=== PATIENT | male | born 1975 | race Caucasian/White ===

== ENCOUNTER → 2019-06-11 08:35 | Outpatient (CLI) | payer OTHER, SELFPAY ==
--- NOTE | 2019-06-11 08:39 | DI.RAD.S_ITS ---
PROCEDURE: XR CHEST 2V INDICATIONS: worsening cough TECHNIQUE: 2 views of the chest were acquired. COMPARISON: None. FINDINGS: Surgical changes and devices: None. Lungs and pleura: Lungs are clear. No pleural effusions or pneumothorax. Mediastinum: Mediastinal contours are normal. Heart size is normal. Bones and chest wall: No suspicious bony abnormalities. Soft tissues appear unremarkable. IMPRESSION: No acute cardiopulmonary process is evident. Dictated by: Carlos Bradshaw M.D. on 06/11/2019 at 8:14 Approved by: Carlos Bradshaw M.D. on 06/11/2019 at 8:14
== END ==
PROVIDERS: PCP Hospitalist; Visit Provider Physician Assistant
DX: R05 Cough (principal)
CPT/HCPCS: 71046

== ENCOUNTER 2019-09-20 20:18 | Emergency (ER) | payer OTHER, SELFPAY ==
[2019-09-20 20:33] VITALS: BP 129/91; PULSE 73; RESP 15; TEMP 37; O2SAT 97; BMI 41.6
--- NOTE | 2019-09-20 20:58 | PC.NURSE ---
Patient having left sided facial pain and swelling. Left side of face appears to be mildly reddened, no obvious swelling noted on exam. Patient states it hurts to touch the face and it feels like sinus pressure. He has had a history of sinus infections in the past. He states he has had sinus scraping procedure as well. Has been treated with antibiotics several times over the past few months for UTI, and upper respiratory infections. Currently taking doxycycline and was also prescribed a ipatropium nasal spray.
--- NOTE | 2019-09-20 20:59 | ED_ITS ---
HPI - Ear Problem General Chief complaint: Ear Stated complaint: lt sided facial swelling Time Seen by Provider: 09/20/19 20:56 Source: patient Mode of arrival: Ambulatory Limitations: no limitations History of Present Illness HPI Narrative: This is a 44-year-old male comes in with complaint of left-sided facial swelling. Patient states that he had swelling and redness noted on last week. He had a small spot he thought he was a pimple which popped he has ate it was red and swollen and that has decreased after being started on doxycycline on Thursday. Patient states he continues to feel like the left side of his face swollen and that the lymph nodes or sort of enlarged on just in front of his ear and his neck. He states they do not really seem like they are getting bigger. He states are comfortable. He has not had any fevers. He denies chills. He denies any muffled voice or changes in voice. Patient states he has had multiple sinus infections in the past and had multiple rounds of antibiotics and seen ENT and had sinus scrapping. Patient has had headaches intermittently. Patient states he has been using Mucinex daily after he had been sick several weeks ago. He is not having chest pain or coughing anything up from his chest. He has had some nausea he states that sort of intermittent. He denies any issues with bowel movements. Denies any swelling in his legs. He states that both sides of his face have been a little bit red. Related Data Home Medications Medication Instructions Recorded Confirmed lorazepam 1 mg tablet 1 mg PO QDAY PRN tab 05/17/19 09/16/19 tadalafil 20 mg tablet 20 mg PO Q DAY PRN tab 05/17/19 09/16/19 Previous Rx's Medication Instructions Recorded lisinopril 20 mg tablet 20 mg PO QDAY #90 tab 08/03/18 clobetasol 0.05 % topical ointment 1 applictn TOP DAILY #30 gram 02/04/19 dextroamphetamine-amphetamine 5 mg 5 mg PO DAILY PRN #30 tab 06/24/19 tablet erythromycin 5 mg/gram (0.5 %) eye 1 applic EYE-RIGHT BID 7 Days #3.5 06/27/19 ointment gram omeprazole 20 mg capsule,delayed 20 mg PO QDAY #30 cap 06/27/19 release doxycycline hyclate 100 mg capsule 100 mg PO BID 7 Days #14 cap 09/16/19 Allergies Allergy/AdvReac Type Severity Reaction Status Date / Time benzonatate AdvReac severe Verified 09/16/19 16:00 [From Marycarmen Hernandez] headache Review of Systems Review of Systems ROS Unobtainable: All systems reviewed & are unremarkable except as noted in HPI and below Patient History Medical History ADHD (attention deficit hyperactivity disorder) (Chronic) Allergic rhinitis (Chronic Unknown) Anxiety (Chronic 11/19/15) Anxiety (Chronic Unknown) Colon polyps (Resolved 2018) Erectile dysfunction (Chronic) Essential hypertension (Chronic 2016) Gastric ulcer (Resolved 2017) GERD (gastroesophageal reflux disease) (Chronic) Hiatal hernia (Chronic Unknown) Hypertension (Chronic 2016) IBS (irritable bowel syndrome) (Chronic 2006) Plantar warts (Resolved Unknown) Recurrent sinusitis (Resolved 2015) Sleep apnea (Chronic 11/19/15) Sleep apnea (Chronic 2012) Surgical History Hx of colonoscopy (Resolved 2017) Hx of endoscopy (Resolved 2017) Hx of nasal septoplasty (Resolved ~02/2016) Hx of vasectomy (Resolved 02/2017) Family History Father Cancer Diabetes mellitus Kidney failure Mother Heart disease Depression Chronic fatigue Family/Other No problems noted. Social History Smoking Status: Former smoker alcohol intake frequency: holidays/special occasions only Substance Use Type: marijuana Exam Narrative Exam Narrative: GEN: well nourished, obese male, alert and oriented x 3, patient appears to be in no acute distress. HEENT: Atraumatic, pupils are equal round reactive to light, extraocular movements are intact, nares are clear, TMs are clear with no fluid, there is no conjunctival pallor. Throat is clear without any exudates, erythema, tonsillar enlargement or uvular deviation, patient has some mild postnasal drip. Patient does not have any appreciable swelling from left compared to the right. I am able to palpate small lymph node submandibular region that is less than 1 cm, mobile and nontender. Also has a small lymph node in the anterior cervical chain that is also less than 1 cm Alisha and mobile and nontender these are both on the left. Patient does have an area of scabbing with slight erythema at the top of the left forehead which patient states is improving. There is no drainage and there is no further erythema spreading or on the face. No muffled voice. No difficulty swallowing secretions. HEART: Regular rate and rhythm without murmur, clicks, rubs. LUNGS:Lungs clear to auscultation, no wheezes, rales, crackles, chest moves symmetrically ABD:bowel sounds normal, soft, non-tender, no guarding, rebound, rigidity, no masses noted, no hepatosplenomegaly MSCL: Non-tender, no muscle atrophy, muscles strength 5/5 upper and lower extremities, full range of motion, normal gait NEURO:CN 2-12 intact, sensation normal SKIN: no rash or skin changes other than noted above. Initial Vital Signs Initial Vital Signs: Vital Signs Temperature 98.6 F 09/20/19 20:33 Pulse Rate 73 09/20/19 20:33 Respiratory Rate 15 09/20/19 20:33 Blood Pressure 129/91 H 09/20/19 20:33 Pulse Oximetry 97 09/20/19 20:33 Course Vital Signs Vital signs: Vital Signs - 8 hr 09/20/19 20:33 Temperature 98.6 F Pulse Rate 73 Respiratory Rate 15 Blood Pressure 129/91 H Pulse Oximetry 97 Medical Decision Making [facility] Narrative Medical decision making narrative: Discussed with patient I suspect he may have a chronic sinusitis. He has seen ENT in the past and has follow-up set for the 12. We discussed possibility of neti-pot or similar device and he has been Flonase. Patient and I discussed that we could switch his antibiotics but I do not feel it would be helpful. The redness on his forehead has been improving and I suspected lymph nodes may possibly be reactive to this. He does not sound like he is having rapidly worsening symptoms that would warrant further imaging. Patient is comfortable to plan of continuing doxycycline for the next several days and watchful waiting. He can return any time and was given strict return precautions. Discharge Plan Departure Patient Disposition: Home Clinical Impression: Left facial swelling Discharge Date/Time: 09/20/19 21:26 Activity Restrictions/Additional Instructions: Follow up with Dr. Garcia call tomorrow to see if they can see you sooner than the 29 of September. I would recommend stopping the Mucinex. Continue doxycycline as prescribed. You may continue Tylenol up to a 1000 mg every 8 hours and/or ibuprofen up to 800 mg every 8 hours as needed for pain Return for fevers greater 100.4 F, rapidly worsening swelling or redness of your face or neck, muffled voice, inability to swallow saliva or secretions/liquids, passing out, chest pain, shortness of breath, coughing blood or other new or concerning symptoms. Prescriptions: No Action erythromycin 5 mg/gram (0.5 %) ointment 1 applic EYE-RIGHT BID 7 Days Qty: 3.5 RF: 2 doxycycline hyclate 100 mg capsule 100 mg PO BID 7 Days Qty: 14 RF: 0 lisinopril 20 mg tablet 20 mg PO QDAY Qty: 90 RF: 3 dextroamphetamine-amphetamine [Adderall] 5 mg tablet 5 mg PO DAILY PRN (Reason: ADHD) Qty: 30 RF: 0 omeprazole 20 mg capsule,delayed release(DR/EC) 20 mg PO QDAY Qty: 30 RF: 3 clobetasol 0.05 % ointment 1 applictn TOP DAILY Qty: 30 RF: 3 lorazepam [Ativan] 1 mg tablet 1 mg PO QDAY PRN (Reason: anxiety) RF: 0 tadalafil [Cialis] 20 mg tablet 20 mg PO Q DAY PRNRF: 0 Referrals: Clifton Garcia MD [Physician] - Itzel Hurley MD [Primary Care Provider] -
== END 2019-09-20 21:26 | disposition home or self-care (01) ==
PROVIDERS: Emergency Provider Emergency Medicine; Family Provider Hospitalist; PCP Hospitalist
DX: R22.0 Localized swelling, mass and lump, head (principal); L53.9 Erythematous condition, unspecified
CPT/HCPCS: 99282

== ENCOUNTER → 2020-05-07 11:03 | Outpatient (CLI) | payer BC, SELFPAY ==
[2020-05-07 12:10] LABS: Add Manual Diff / Slide Review NO; Basophils Absolute Auto 100 /uL (0-100); Basophils Percent Auto 0.9 % (0-2); Eosinophils Absolute Auto 600 /uL (0-450); Eosinophils Percent Auto 7.3 % (2-4); Hematocrit 42.1 % (41-53); Hemoglobin 14.5 g/dL (13.5-17.5); Lymphocytes Absolute Auto 2500 /uL (1100-4500); Lymphocytes Percent Auto 30.4 % (25-40); Mean Corpuscular HGB Conc 34.4 % (30-36); Mean Corpuscular Hemoglobin 30.6 PG (26-34); Mean Corpuscular Volume 89.1 fL (80-100); Monocytes Absolute Auto 600 /uL (0-900); Neutrophils Absolute Auto 4500 /uL (1500-7000); Neutrophils Percent Auto 54.4 % (50-75); Platelet Count 253 X10^3/uL (150-400); Red Blood Cell Count 4.73 X10^6/uL (4.5-5.9); Red Cell Distribution Width 13.4 % (11.6-14.8); White Blood Cell Count 8.2 X10^3/uL (4.5-11.0)
[2020-05-07 12:22] LABS: Hemoglobin A1C% w Est Avg Glu 5.3 % (4.0-6.0)
[2020-05-07 12:23] LABS: Alanine Aminotransferase 26 IU/L (<50); Albumin 4.3 g/dL (3.5-5.0); Albumin Globulin Ratio 1.5 (1.0-2.8); Alkaline Phosphatase 49 U/L (38-126); Aspartate Aminotransferase 28 IU/L (17-59); BUN Creatinine Ratio 12.1 (6-22); Bilirubin Total 0.6 mg/dL (0.2-1.3); Blood Urea Nitrogen 11 mg/dL (9-20); Calcium 9.6 mg/dL (8.4-10.2); Carbon Dioxide 29 mmol/L (22-32); Chloride 104 mmol/L (98-107); Cholesterol 133 mg/dL (140-199); Estimated Glomerular Filt Rate > 60.0 mL/min (>60); Globulin 2.8 g/dL (1.7-4.1); Glucose 101 mg/dL (70-100); HDL Cholesterol 30 mg/dL (40-60); HEMOLYSIS < 15 (0-50); LDL Cholesterol Calculated 81 mg/dL (<100); Potassium 4.5 mmol/L (3.4-5.1); Sodium 140 mmol/L (137-145); Total Protein 7.1 g/dL (6.3-8.2); Triglycerides 110 mg/dL (35-150)
[2020-05-07 13:20] LABS: TSH w/ Reflex to FT4 1.16 uIU/mL (0.47-4.68)
== END ==
PROVIDERS: Family Provider Hospitalist; PCP Family Medicine; Referring Provider Family Medicine; Visit Provider Family Medicine
DX: E66.9 Obesity, unspecified (principal); F90.9 Attention-deficit hyperactivity disorder, unspecified type; I10 Essential (primary) hypertension
CPT/HCPCS: 36415; 80053; 80061; 82306; 83036; 84443; 85025

== ENCOUNTER 2020-06-23 10:11 | Emergency (ER) | payer BC, SELFPAY ==
[2020-06-23 10:32] VITALS: BP 134/81; PULSE 67; RESP 16; TEMP 36.9; O2SAT 97; BMI 38.2
--- NOTE | 2020-06-23 10:51 | ED_ITS ---
HPI - Extremity Injury (Upper) General Chief Complaint: Extremity Injury, Upper Stated Complaint: cut ring finger Time Seen by Provider: 06/23/20 10:13 Source: patient Mode of arrival: Ambulatory Limitations: no limitations History of Present Illness HPI narrative: Patient states tetanus up-to-date less than 5 years. Patient was cleaning a mandoline cutting instrument, it is sharp. Accidentally cut the dorsal surface of the right ring finger distally. No numbness tingling weakness. Has full active range of motion at the MCP PIP and D IP joints. He applied a pressure dressing before leaving home. Bleeding is controlled Related Data Previous Rx's Medication Instructions Recorded clobetasol 0.05 % topical ointment 1 applictn TOP DAILY #30 gram 02/04/19 lisinopril 20 mg tablet 20 mg PO QDAY #90 tab 11/08/19 tadalafil 20 mg tablet 20 mg PO Q DAY PRN #90 tab 01/03/20 omeprazole 20 mg capsule,delayed 20 mg PO QDAY #30 cap 04/10/20 release dextroamphetamine-amphetamine 5 mg 5 mg PO DAILY PRN #30 tab 04/17/20 tablet lorazepam 1 mg tablet 1 mg PO QDAY PRN #30 tab 05/22/20 cephalexin 500 mg PO TID #15 cap 06/23/20 Allergies Allergy/AdvReac Type Severity Reaction Status Date / Time benzonatate AdvReac severe Verified 05/18/20 08:30 [From Marycarmen Hernandez] headache Review of Systems Review of Systems Narrative: GENERAL: Denies chills, fatigue, malaise, fever, sweats. MUSCULOSKELETAL: denies weakness, joint pain, or bony pain SKIN: Denies rash, skin lesions, has laceration NEUROLOGIC: Denies weakness, numbness tingling PSYCHIATRIC: No concerning psychosocial issues. ROS Unobtainable: All systems reviewed & are unremarkable except as noted in HPI and below Patient History Medical History ADHD (attention deficit hyperactivity disorder) (Chronic) Allergic rhinitis (Chronic Unknown) Anxiety (Chronic 11/19/15) Anxiety (Chronic Unknown) Colon polyps (Resolved 2018) Erectile dysfunction (Chronic) Essential hypertension (Chronic 2017) Gastric ulcer (Resolved 2018) GERD (gastroesophageal reflux disease) (Chronic) Hiatal hernia (Chronic Unknown) Hypertension (Chronic 2017) IBS (irritable bowel syndrome) (Chronic 2006) Lipoma (Acute) Obesity (BMI 30-39.9) (Acute) Plantar warts (Resolved Unknown) Recurrent sinusitis (Resolved 2015) Sleep apnea (Chronic 11/19/15) Sleep apnea (Chronic 2012) Surgical History Hx of colonoscopy (Resolved 2018) Hx of endoscopy (Resolved 2017) Hx of nasal septoplasty (Resolved ~02/2016) Hx of vasectomy (Resolved 02/2017) Family History Father Cancer Diabetes mellitus Kidney failure Mother Heart disease Depression Chronic fatigue Family/Other No problems noted. Social History Smoking Status: Former smoker alcohol intake: current substance use type: marijuana Smoking Status: Former smoker alcohol intake frequency: holidays/special occasions only Substance Use Type: marijuana Exam Narrative Exam Narrative: GENERAL: patient appears stated age. Well-nourished, well- developed patient, in no distress, not toxic EXTREMITIES: No edema or joint tenderness. Patient has isolated injury to the right ring finger. There is a linear 1 cm laceration obliquely between the finger nail bed and the D IP joint. After direct pressure on wound and elevation of the hand hemostasis accomplished. Bloodless field. Wound is very superficial. However involve a small vessel, non artery. Based visualized. No foreign body no tendon or bony injury seen. No muscle exposure seen. Has full active range of motion with isolated MCP PIP and PIP joints. Light touch intact to finger tip. NEURO: AOx4. SKIN: No rash or erythema of visible areas PSYCH: Not anxious, is cooperative Initial Vital Signs Initial Vital Signs: Vital Signs Temperature 98.4 F 06/23/20 10:32 Pulse Rate 67 06/23/20 10:32 Respiratory Rate 16 06/23/20 10:32 Blood Pressure 134/81 06/23/20 10:32 Pulse Oximetry 97 06/23/20 10:32 Procedures Laceration Repair Laceration 1: Site: other (Ring finger) Side (If applicable): right Size (cm): 1 Description: linear Depth: simple, single layer Local Anesthetic: lidocaine 1% Amount of anesthesia used (mL): 2 Pre-repair: wound explored and irrigated extensively Skin layer closed with: other (Dermabond and Steri-Strips) Course Orders Ordered: Discontinued Medications Cephalexin HCl (Keflex) 500 mg PO NOW ONE Stop: 06/23/20 10:51 Last Admin: 06/23/20 11:33 Dose: 500 mg Documented by: JAVIER Morphine Sulfate (Morphine) 4 mg IV NOW ONE Stop: 06/23/20 10:56 Last Admin: 06/23/20 11:08 Dose: Not Given Documented by: ZEE Vital Signs Vital signs: Vital Signs - 8 hr 06/23/20 10:32 Temperature 98.4 F Pulse Rate 67 Respiratory Rate 16 Blood Pressure 134/81 Pulse Oximetry 97 MDM - Extremity Injury (Upper) Differential Diagnosis Differential diagnosis: Likely other (Finger laceration) MDM Narrative Medical decision making narrative: No imaging indicated this time. Based visualized. Wound is very superficial. Less than 1 mm deep. Finger was numbed for cleaning and irrigation and possible suturing. In Case any problems with hemostasis. Aluminum finger splint applied by nurse Radford, to support skin healing. Neurovascularly intact. Skin exposed dorsally. Discharge Plan Departure Patient Disposition: Home Clinical Impression: Finger laceration Qualifiers: Encounter type: initial encounter Finger: ring finger Damage to nail status: without damage Foreign body presence: without foreign body Laterality: right Qualified Code(s): S61.214A - Laceration without foreign body of right ring finger without damage to nail, initial encounter Discharge Date/Time: 06/23/20 11:48 Instructions: DI for Laceration Repair-Skin Closure Strips, DI for Laceration Repair-Skin Glue Activity Restrictions/Additional Instructions: See family doctor in a week for recheck. Keep finger dry the next 24 hours and then continue to keep as dry as possible. Return if worse or if any discoloration of the finger or increased pain or any fever or chills or discharge from the wound. Use finger splint in the next 4 days, remove it daily to inspect the skin for any discoloration or redness. Return if any questions or concerns. Your prescriptions have been sent to [facility] Prescriptions: New cephalexin 500 mg capsule 500 mg PO TID Qty: 15 RF: 0 No Action lisinopril 20 mg tablet 20 mg PO QDAY Qty: 90 RF: 3 tadalafil [Cialis] 20 mg tablet 20 mg PO Q DAY PRN (Reason: sexual activity) Qty: 90 RF: 0 omeprazole 20 mg capsule,delayed release(DR/EC) 20 mg PO QDAY Qty: 30 RF: 3 dextroamphetamine-amphetamine [Adderall] 5 mg tablet 5 mg PO DAILY PRN (Reason: ADHD) Qty: 30 RF: 0 lorazepam [Ativan] 1 mg tablet 1 mg PO QDAY PRN (Reason: anxiety) Qty: 30 RF: 0 clobetasol 0.05 % ointment 1 applictn TOP DAILY Qty: 30 RF: 3 Referrals: Aguila Beal DO [Primary Care Provider] -
[2020-06-23] MEDS: cephALEXin 250 MG CAPSULE 500 MG PO (11:33)
[2020-06-23] MEDS: LIDOCAINE 1% (PF) 2 ML (11:33)
== END 2020-06-23 11:48 | disposition home or self-care (01) ==
PROVIDERS: Emergency Provider Emergency Medicine; PCP Family Medicine
DX: S61.214A Laceration without foreign body of right ring finger without damage to nail, initial encounter (principal); W26.8XXA Contact with other sharp object(s), not elsewhere classified, initial encounter
CPT/HCPCS: 99283

== ENCOUNTER → 2020-10-03 13:51 | Outpatient (CLI) | payer BC, SELFPAY ==
[2020-10-03 15:30] LABS: COVID19 -Nasal RAPID Negative (Negative)
== END ==
PROVIDERS: PCP Family Medicine; Visit Provider Physician Assistant
DX: Z20.828 Contact with and (suspected) exposure to other viral communicable diseases (principal); R19.5 Other fecal abnormalities
CPT/HCPCS: 87635

== ENCOUNTER → 2021-01-16 08:13 | Outpatient (CLI) | payer BC, SELFPAY ==
[2021-01-16] MEDS: COVID-19 VACC #1, MRNA(MOD) 100 MCG/0.5 ML VIAL IM (08:25)
== END ==
PROVIDERS: PCP Family Medicine; Visit Provider Family Medicine
DX: Z23 Encounter for immunization (principal)
CPT/HCPCS: 0011A; 91301

== ENCOUNTER → 2021-02-13 08:13 | Outpatient (CLI) | payer BC, SELFPAY ==
[2021-02-13] MEDS: COVID-19 VACC #2, MRNA(MOD) 100 MCG/0.5 ML VIAL IM (08:19)
== END ==
PROVIDERS: PCP Family Medicine; Visit Provider Internal Medicine
DX: Z23 Encounter for immunization (principal)
CPT/HCPCS: 0012A; 91301

== ENCOUNTER → 2021-04-15 09:57 | Outpatient (CLI) | payer BC, SELFPAY ==
[2021-04-19 09:20] LABS: Percent Free Testosterone 3.52 % (1.50-4.20); Testosterone Free 9.87 ng/dL (5.00-21.00); Testosterone Total 280.3 ng/dL (264.0-916.0)
== END ==
PROVIDERS: PCP Family Medicine; Referring Provider Family Medicine; Visit Provider Family Medicine
DX: E66.9 Obesity, unspecified (principal); N52.9 Male erectile dysfunction, unspecified; R53.83 Other fatigue
CPT/HCPCS: 36415; 84402; 84403

== ENCOUNTER → 2021-04-26 14:01 | Outpatient (CLI) | payer BC, SELFPAY ==
[2021-05-01 05:21] LABS: Percent Free Testosterone 2.78 % (1.50-4.20); Testosterone Free 8.63 ng/dL (5.00-21.00); Testosterone Total 310.5 ng/dL (264.0-916.0)
== END ==
PROVIDERS: PCP Family Medicine; Referring Provider Family Medicine; Visit Provider Family Medicine
DX: R79.89 Other specified abnormal findings of blood chemistry (principal)
CPT/HCPCS: 36415; 84402; 84403

== ENCOUNTER → 2021-05-17 13:53 | Outpatient (CLI) | payer BC, SELFPAY ==
[2021-05-17 16:08] LABS: Add Manual Diff / Slide Review NO; Basophils Absolute Auto 100 /uL (0-100); Basophils Percent Auto 0.6 % (0-2); Eosinophils Absolute Auto 700 /uL (0-450); Eosinophils Percent Auto 6.8 % (2-4); Hematocrit 46.6 % (41-53); Hemoglobin 15.7 g/dL (13.5-17.5); Lymphocytes Absolute Auto 3000 /uL (1100-4500); Lymphocytes Percent Auto 29.8 % (25-40); Mean Corpuscular HGB Conc 33.7 % (30-36); Monocytes Absolute Auto 800 /uL (0-900); Monocytes Percent Auto 7.6 % (3-14); Neutrophils Absolute Auto 5600 /uL (1500-7000); Neutrophils Percent Auto 55.2 % (50-75); Platelet Count 266 X10^3/uL (150-400); Red Blood Cell Count 5.24 X10^6/uL (4.5-5.9); Red Cell Distribution Width 13.2 % (11.6-14.8); White Blood Cell Count 10.2 X10^3/uL (4.5-11.0)
[2021-05-17 16:30] LABS: Alanine Aminotransferase 22 IU/L (<50); Albumin 4.3 g/dL (3.5-5.0); Albumin Globulin Ratio 1.5 (1.0-2.8); Alkaline Phosphatase 52 U/L (38-126); Aspartate Aminotransferase 26 IU/L (17-59); BUN Creatinine Ratio 13.1 (6-22); Bilirubin Total 0.7 mg/dL (0.2-1.3); Blood Urea Nitrogen 14 mg/dL (9-20); Calcium 9.9 mg/dL (8.4-10.2); Carbon Dioxide 26 mmol/L (22-32); Chloride 103 mmol/L (98-107); Cholesterol 181 mg/dL (140-199); Estimated Glomerular Filt Rate > 60.0 mL/min (>60); Globulin 2.9 g/dL (1.7-4.1); Glucose 107 mg/dL (70-100); HDL Cholesterol 42 mg/dL (40-60); HEMOLYSIS < 15 (0-50); LDL Cholesterol Calculated 89 mg/dL (<100); Potassium 4.1 mmol/L (3.4-5.1); Sodium 139 mmol/L (137-145); Total Protein 7.2 g/dL (6.3-8.2); Triglycerides 251 mg/dL (35-150)
[2021-05-22 09:02] LABS: Percent Free Testosterone 3.32 % (1.50-4.20); Testosterone Free 10.06 ng/dL (5.00-21.00)
== END ==
PROVIDERS: PCP Family Medicine; Referring Provider Family Medicine; Visit Provider Family Medicine
DX: R79.89 Other specified abnormal findings of blood chemistry (principal); E66.9 Obesity, unspecified; I10 Essential (primary) hypertension; R53.83 Other fatigue
CPT/HCPCS: 80053; 80061; 84402; 84403; 85025

== ENCOUNTER → 2021-09-30 14:32 | Outpatient (CLI) | payer BC, SELFPAY ==
[2021-09-30 16:06] LABS: Add Manual Diff / Slide Review NO; Basophils Absolute Auto 100 /uL (0-100); Basophils Percent Auto 0.6 % (0-2); Eosinophils Absolute Auto 600 /uL (0-450); Eosinophils Percent Auto 5.2 % (2-4); Hematocrit 43.7 % (41-53); Hemoglobin 15.2 g/dL (13.5-17.5); Lymphocytes Absolute Auto 3400 /uL (1100-4500); Lymphocytes Percent Auto 31.9 % (25-40); Mean Corpuscular HGB Conc 34.8 % (30-36); Mean Corpuscular Hemoglobin 30.5 PG (26-34); Mean Corpuscular Volume 87.8 fL (80-100); Monocytes Absolute Auto 800 /uL (0-900); Monocytes Percent Auto 7.5 % (3-14); Neutrophils Absolute Auto 5900 /uL (1500-7000); Neutrophils Percent Auto 54.8 % (50-75); Platelet Count 296 X10^3/uL (150-400); Red Blood Cell Count 4.98 X10^6/uL (4.5-5.9); Red Cell Distribution Width 13.1 % (11.6-14.8); White Blood Cell Count 10.7 X10^3/uL (4.5-11.0)
[2021-09-30 16:52] LABS: Alanine Aminotransferase 20 IU/L (<50); Albumin 4.3 g/dL (3.5-5.0); Albumin Globulin Ratio 1.5 (1.0-2.8); Alkaline Phosphatase 58 U/L (38-126); Aspartate Aminotransferase 22 IU/L (17-59); BUN Creatinine Ratio 11.2 (6-22); Bilirubin Total 0.6 mg/dL (0.2-1.3); Blood Urea Nitrogen 12 mg/dL (9-20); Calcium 9.6 mg/dL (8.4-10.2); Carbon Dioxide 31 mmol/L (22-32); Chloride 104 mmol/L (98-107); Cholesterol 158 mg/dL (140-199); Estimated Glomerular Filt Rate > 60.0 mL/min (>60); Globulin 2.8 g/dL (1.7-4.1); Glucose 89 mg/dL (70-100); HDL Cholesterol 33 mg/dL (40-60); HEMOLYSIS < 15 (0-50); LDL Cholesterol Calculated 63 mg/dL (<100); Potassium 4.6 mmol/L (3.4-5.1); Sodium 142 mmol/L (137-145); Total Protein 7.1 g/dL (6.3-8.2); Triglycerides 310 mg/dL (35-150)
[2021-10-05 15:37] LABS: Percent Free Testosterone 3.17 % (1.50-4.20); Testosterone Free 9.59 ng/dL (5.00-21.00); Testosterone Total 302.6 ng/dL (264.0-916.0)
== END ==
PROVIDERS: PCP Family Medicine; Referring Provider Family Medicine; Visit Provider Family Medicine
DX: R79.89 Other specified abnormal findings of blood chemistry (principal); E78.1 Pure hyperglyceridemia
CPT/HCPCS: 36415; 80053; 80061; 84402; 84403; 85025

== ENCOUNTER → 2022-01-13 13:02 | Outpatient (CLI) | payer BC, SELFPAY ==
[2022-01-17 15:36] LABS: Percent Free Testosterone 3.07 % (1.50-4.20); Testosterone Free 6.71 ng/dL (5.00-21.00); Testosterone Total 218.7 ng/dL (264.0-916.0)
== END ==
PROVIDERS: PCP Family Medicine; Referring Provider Family Medicine; Visit Provider Family Medicine
DX: R79.89 Other specified abnormal findings of blood chemistry (principal)
CPT/HCPCS: 36415; 84402; 84403

== ENCOUNTER → 2022-01-14 13:53 | Outpatient (CLI) | payer BC, SELFPAY ==
[2022-01-14 14:38] LABS: COVID19 -Nasal RAPID Negative (Negative)
== END ==
PROVIDERS: PCP Family Medicine; Visit Provider Nurse Practitioner Family
DX: Z20.822 Contact with and (suspected) exposure to COVID-19 (principal)
CPT/HCPCS: 87635

== ENCOUNTER → 2022-05-08 07:07 | Outpatient (CLI) | payer BC, SELFPAY ==
[2022-05-08 09:00] LABS: Add Manual Diff / Slide Review NO; Basophils Absolute Auto 100 /uL (0-100); Basophils Percent Auto 0.7 % (0-2); Eosinophils Absolute Auto 500 /uL (0-450); Eosinophils Percent Auto 6.4 % (2-4); Hematocrit 45.3 % (41-53); Hemoglobin 15.7 g/dL (13.5-17.5); Lymphocytes Absolute Auto 2400 /uL (1100-4500); Mean Corpuscular HGB Conc 34.5 % (30-36); Mean Corpuscular Hemoglobin 30.6 PG (26-34); Mean Corpuscular Volume 88.5 fL (80-100); Monocytes Absolute Auto 600 /uL (0-900); Monocytes Percent Auto 7.9 % (3-14); Neutrophils Absolute Auto 4400 /uL (1500-7000); Platelet Count 261 X10^3/uL (150-400); Red Blood Cell Count 5.12 X10^6/uL (4.5-5.9); Red Cell Distribution Width 13.4 % (11.6-14.8)
[2022-05-08 09:17] LABS: Alanine Aminotransferase 19 IU/L (<50); Albumin 4.2 g/dL (3.5-5.0); Albumin Globulin Ratio 1.6 (1.0-2.8); Alkaline Phosphatase 41 U/L (38-126); Aspartate Aminotransferase 24 IU/L (17-59); BUN Creatinine Ratio 13.3 (6-22); Blood Urea Nitrogen 14 mg/dL (9-20); Calcium 9.1 mg/dL (8.4-10.2); Carbon Dioxide 30 mmol/L (22-32); Chloride 100 mmol/L (98-107); Cholesterol 134 mg/dL (140-199); Estimated Glomerular Filt Rate > 60 mL/min (>60); Globulin 2.6 g/dL (1.7-4.1); Glucose 102 mg/dL (70-100); HDL Cholesterol 31 mg/dL (40-60); HEMOLYSIS < 15 (0-50); LDL Cholesterol Calculated 74 mg/dL (<100); Potassium 4.3 mmol/L (3.4-5.1); Sodium 139 mmol/L (137-145); Total Protein 6.8 g/dL (6.3-8.2); Triglycerides 145 mg/dL (35-150)
[2022-05-15 08:35] LABS: Percent Free Testosterone 3.26 % (1.50-4.20); Testosterone Total 404.8 ng/dL (264.0-916.0)
== END ==
PROVIDERS: PCP Family Medicine; Referring Provider Family Medicine; Visit Provider Family Medicine
DX: E78.1 Pure hyperglyceridemia (principal); G47.30 Sleep apnea, unspecified; I10 Essential (primary) hypertension
CPT/HCPCS: 36415; 80053; 80061; 84402; 84403; 85025

== ENCOUNTER → 2022-09-30 12:01 | Outpatient (CLI) | payer BC, SELFPAY ==
--- NOTE | 2022-09-30 12:17 | DI.RAD.S_ITS ---
PROCEDURE: XR CHEST 2V INDICATIONS: shortness of breath TECHNIQUE: 2 views of the chest were acquired. COMPARISON: [facility], CR, XR CHEST 2V, 06/11/2019, 8:39. FINDINGS: Surgical changes and devices: None. Lungs and pleura: Lungs are clear. No pleural effusions or pneumothorax. Mediastinum: Mediastinal contours are normal. Heart size is normal. Bones and chest wall: No suspicious bony abnormalities. Soft tissues appear unremarkable. IMPRESSION: No acute cardiopulmonary disease process. Dictated by: Ros Robles MD, PhD on 09/30/2022 at 13:36 Approved by: Ros Robles MD, PhD on 09/30/2022 at 13:36
[2022-09-30 15:49] LABS: Influenza A - CEPHEID Flu A POSITIVE (NEGATIVE); Influenza B - CEPHEID Flu B NEGATIVE (NEGATIVE); Respiratory Syncytial Virus Negative (Negative)
[2022-09-30 15:57] LABS: COVID-19 CEPHEID 4-PLEX PCR Negative (Negative)
== END ==
PROVIDERS: PCP Family Medicine; Referring Provider Family Medicine; Visit Provider Family Medicine
DX: R06.02 Shortness of breath (principal); R09.81 Nasal congestion; R51.9 Headache, unspecified; Z20.822 Contact with and (suspected) exposure to COVID-19
CPT/HCPCS: 0241U; 71046

== ENCOUNTER → 2023-05-25 09:05 | Outpatient (CLI) | payer BC, SELFPAY ==
[2023-05-25 11:10] LABS: Add Manual Diff / Slide Review NO; Basophils Absolute Auto 100 /uL (0-100); Basophils Percent Auto 1.1 % (0-2); Eosinophils Absolute Auto 700 /uL (0-450); Eosinophils Percent Auto 8.1 % (2-4); Hematocrit 44.9 % (41-53); Hemoglobin 15.4 g/dL (13.5-17.5); Lymphocytes Absolute Auto 2300 /uL (1100-4500); Lymphocytes Percent Auto 28.3 % (25-40); Mean Corpuscular HGB Conc 34.4 % (30-36); Mean Corpuscular Hemoglobin 30.8 PG (26-34); Mean Corpuscular Volume 89.6 fL (80-100); Monocytes Absolute Auto 600 /uL (0-900); Monocytes Percent Auto 8.1 % (3-14); Neutrophils Absolute Auto 4400 /uL (1500-7000); Neutrophils Percent Auto 54.4 % (50-75); Platelet Count 269 X10^3/uL (150-400); Red Blood Cell Count 5.01 X10^6/uL (4.5-5.9); Red Cell Distribution Width 13.4 % (11.6-14.8)
[2023-05-25 11:48] LABS: Alanine Aminotransferase 28 IU/L (<50); Albumin 4.4 g/dL (3.5-5.0); Albumin Globulin Ratio 1.4 (1.0-2.8); Alkaline Phosphatase 55 U/L (38-126); Aspartate Aminotransferase 24 IU/L (17-59); BUN Creatinine Ratio 13.4 (6-22); Bilirubin Total 0.7 mg/dL (0.2-1.3); Blood Urea Nitrogen 13 mg/dL (9-20); Calcium 9.6 mg/dL (8.4-10.2); Carbon Dioxide 35 mmol/L (22-32); Chloride 101 mmol/L (98-107); Cholesterol 165 mg/dL (140-199); Estimated Glomerular Filt Rate > 60 mL/min (>60); Globulin 3.1 g/dL (1.7-4.1); Glucose 108 mg/dL (70-100); HDL Cholesterol 33 mg/dL (40-60); HEMOLYSIS < 15 (0-50); LDL Cholesterol Calculated 102 mg/dL (<100); Potassium 4.7 mmol/L (3.4-5.1); Sodium 141 mmol/L (137-145); Total Protein 7.5 g/dL (6.3-8.2); Triglycerides 151 mg/dL (35-150)
[2023-05-31 19:07] LABS: Testosterone Free 6.68 ng/dL (5.00-21.00); Testosterone Total 208.9 ng/dL (264.0-916.0)
== END ==
PROVIDERS: PCP Family Medicine; Referring Provider Family Medicine; Visit Provider Family Medicine
DX: R79.89 Other specified abnormal findings of blood chemistry (principal); E78.1 Pure hyperglyceridemia; E78.6 Lipoprotein deficiency; I10 Essential (primary) hypertension; R53.83 Other fatigue
CPT/HCPCS: 36415; 80053; 80061; 84402; 84403; 85025

== ENCOUNTER 2024-05-12 13:14 | Emergency (ER) | payer BC, SELFPAY ==
[2024-05-12] VITALS (8 sets, daily range): BP systolic 138–193; BP diastolic 84–99; PULSE 56–65; RESP 12–23; TEMP 36.6; O2SAT 96–99; BMI 41.6
--- NOTE | 2024-05-12 13:19 | DI.RAD.S_ITS ---
PROCEDURE: XR CHEST 1V INDICATIONS: chest pain TECHNIQUE: One view of the chest was acquired. COMPARISON: [facility], CR, XR CHEST 2V, 09/30/2022, 12:18. FINDINGS: Surgical changes and devices: None. Lungs and pleura: Lungs are clear. No pleural effusions or pneumothorax. Mediastinum: Mediastinal contours appear normal. Heart size is normal. Bones and chest wall: No suspicious bony lesions. Overlying soft tissues appear unremarkable. IMPRESSION: No acute cardiopulmonary abnormality is seen. Dictated by: Christiano Nunez M.D. on 05/12/2024 at 14:52 Approved by: Christiano Nunez M.D. on 05/12/2024 at 14:52
--- NOTE | 2024-05-12 13:23 | EKG_ITS ---
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
--- NOTE | 2024-05-12 13:25 | ED_ITS ---
HPI - Chest Pain General Chief Complaint: Chest Pain Stated Complaint: chest pain,sob Time Seen by Provider: 05/12/24 13:18 Source: patient Mode of arrival: Ambulatory History of Present Illness HPI narrative: 49-year-old male with reported history of asthma presents by private vehicle from home for chest pain and shortness of breath that began earlier this morning while he was working. He tried to use his inhaler, but it was not successful in improving his symptoms and so he decided to present to the ER for evaluation. Associated sweating when symptoms began. Related Data Previous Rx's Medication Instructions Recorded lorazepam 1 mg tablet See Rx Instructions .Route 10/31/22 .COMPLEX #30 tabs clobetasol 0.05 % topical ointment 1 applic topical DAILY PRN rash 06/01/23 #60 grams tadalafil 20 mg tablet 20 mg PO DAILY PRN sexual activity 06/09/23 #90 tabs testosterone 2 pump topical DAILY #75 grams 01/06/24 propranolol 10 mg tablet See Rx Instructions .Route 02/08/24 .COMPLEX #180 tabs albuterol sulfate 90 mcg/actuation 1 inh inhalation QID PRN shortness 05/12/24 aerosol inhaler of breath or wheezing #8.5 grams dextroamphetamine-amphetamine 5 mg 5 mg PO DAILY PRN ADHD #90 tabs 05/17/24 tablet (Adderall) Allergies Allergy/AdvReac Type Severity Reaction Status Date / Time benzonatate AdvReac severe Verified 05/12/24 13:22 [From Marycarmen Hernandez] headache Patient History Medical History Chronic right shoulder pain Febrile respiratory illness Low HDL (under 40) Body mass index (BMI) greater than or equal to 40 in adult Encounter for preventive health examination Hypertriglyceridemia Low testosterone in male Weakness of right arm Tremor Warts Fatigue [place] Obesity (BMI 30-39.9) Plantar warts (Unknown) ADHD (attention deficit hyperactivity disorder) Recurrent sinusitis (2016) IBS (irritable bowel syndrome) (2007) Gastric ulcer (2018) Colon polyps (2018) GERD (gastroesophageal reflux disease) Erectile dysfunction Essential hypertension (2017) Allergic rhinitis (Unknown) Hiatal hernia (Unknown) Anxiety (Unknown) Hypertension (2017) Sleep apnea (2013) Sleep apnea (11/19/15) Anxiety (11/19/15) Surgical History Hx of endoscopy (2018) Hx of colonoscopy (2018) Hx of nasal septoplasty (~02/2016) Hx of vasectomy (02/2017) Family History Father Cancer Diabetes mellitus Kidney failure Mother Heart disease Depression Chronic fatigue Family/Other No problems noted. Social History Smoking Status: Former smoker alcohol intake: current substance use type: marijuana Smoking Status: Former smoker alcohol intake frequency: holidays/special occasions only Substance Use Type: marijuana Exam Initial Vital Signs Initial Vital Signs: Vital Signs Temperature 98 F 05/12/24 13:20 Pulse Rate 65 05/12/24 13:20 Respiratory Rate 16 05/12/24 13:20 Blood Pressure 193/99 H 05/12/24 13:20 Pulse Oximetry 99 05/12/24 13:20 Oxygen Delivery Method Room Air 05/12/24 13:20 Const: Awake, alert, no acute distress, nontoxic appearing, obese Cardiac: regular rate, regular rhythm RESP: unlabored, clear bilaterally, no wheezing GI: Soft, nontender, nondistended, no rebound, no guarding MSK: No edema, full range of motion, pulses equal Skin: Warm, Dry, intact, no rashes Neuro: AO x3, CN II-XII grossly intact, moves all extremities Course Orders Ordered: Discontinued Medications Aspirin (Aspirin 81 Mg Chew Tab) 324 mg PO NOW ONE Stop: 05/12/24 13:20 Last Admin: 05/12/24 13:27 Dose: 324 mg Documented By: CAMILA Vital Signs Vital signs: Vital Signs - 8 hr 05/12/24 13:20 05/12/24 13:44 05/12/24 14:00 Temperature 98 F Pulse Rate 65 61 59 L Respiratory Rate 16 23 15 Blood Pressure 193/99 H Pulse Oximetry 99 97 96 Oxygen Delivery Method Room Air 05/12/24 14:00 Temperature Pulse Rate Respiratory Rate Blood Pressure 138/84 Pulse Oximetry Oxygen Delivery Method MDM - Chest Pain Differential Diagnosis Differential diagnosis: Likely fracture of rib, pneumothorax and costochondritis Lab Data 05/12/24 13:36 07/25/24 13:36 Labs: Lab Results 05/12/24 05/12/24 Range/Units 13:36 15:43 WBC 11.7 H (4.5-11.0) X10^3/uL RBC 4.94 (4.5-5.9) X10^6/uL Hgb 15.1 (13.5-17.5) g/dL Hct 43.4 (41-53) % MCV 87.9 (80-100) fL MCH 30.5 (26-34) PG MCHC 34.7 (30-36) % RDW 13.2 (11.6-14.8) % Plt Count 316 (150-400) X10^3/uL Neut % (Auto) 53.0 (50-75) % Lymph % (Auto) 29.3 (25-40) % [place] % (Auto) 7.9 (3-14) % Eos % (Auto) 8.8 H (2-4) % Baso % (Auto) 1.0 (0-2) % Neut # (Auto) 6200 (7180-0051) /uL Lymph # (Auto) 3400 (2668-6785) /uL [place] # (Auto) 900 (0-900) /uL Eos # (Auto) 1000 H (0-450) /uL Baso # (Auto) 100 (0-100) /uL PT 13.5 H (9.4-12.5) SECONDS INR 1.2 (0.9-1.3) APTT 32 (25.1-36.5) SECONDS D-Dimer 230 (<500) ng/ml Sodium 140 (137-145) mmol/L Potassium 4.1 (3.4-5.1) mmol/L Chloride 104 (98-107) mmol/L Carbon Dioxide 29 (22-32) mmol/L BUN 16 (9-20) mg/dL Creatinine 1.11 (0.66-1.25) mg/dL Estimated GFR > 60 (>60) mL/min BUN/Creatinine Ratio 14.4 (6-22) Glucose 102 H (70-100) mg/dL Calcium 9.2 (8.4-10.2) mg/dL Magnesium 2.0 (1.6-2.3) mg/dL Total Bilirubin 0.7 (0.2-1.3) mg/dL AST 24 (17-59) IU/L ALT 27 (<50) IU/L Alkaline Phosphatase 55 (38-126) U/L Total Creatine Kinase 71 (55-170) U/L Troponin I < 0.012 < 0.012 (0.01-0.034) ng/mL NT-Pro-B Natriuret Pep < 20 (<125) pg/mL Total Protein 7.6 (6.3-8.2) g/dL Albumin 4.6 (3.5-5.0) g/dL Globulin 3.0 (1.7-4.1) g/dL Albumin/Globulin Ratio 1.5 (1.0-2.8) Lipase 196 (23-300) U/L Imaging Data Chest x-ray: Radiologist's Impression: PROCEDURE: XR CHEST 1V INDICATIONS: chest pain TECHNIQUE: One view of the chest was acquired. COMPARISON: [facility], , XR CHEST 2V, 09/30/2022, 12:18. FINDINGS: Surgical changes and devices: None. Lungs and pleura: Lungs are clear. No pleural effusions or pneumothorax. Mediastinum: Mediastinal contours appear normal. Heart size is normal. Bones and chest wall: No suspicious bony lesions. Overlying soft tissues appear unremarkable. IMPRESSION: No acute cardiopulmonary abnormality is seen. Dictated by: Christiano Nunez M.D. on 05/12/2024 at 14:52 Approved by: Christiano Nunez M.D. on 05/12/2024 at 14:52 ECG Data Interpretation: EKG 1 -normal sinus rhythm at 61 beats per minute, normal IA, no ST T wave changes EKG 2 -sinus bradycardia at 56 beats per minute, normal IA, no ST T wave changes, no significant change from previous MDM Narrative Medical decision making narrative: Nontoxic patient with several hours of chest pain and shortness of breath. Physical exam is fairly unremarkable, patient has hypertension on arrival but other vital signs stable. EKG sinus rhythm without concerning findings. Laboratory work and imaging obtained. Laboratory work reviewed, no leukocytosis, normal electrolytes, troponin undetectable x2, BNP undetectable, D-dimer 230. Patient has been resting comfortably in bed throughout ED stay, no changes in symptoms. All lab and imaging findings discussed with the patient at bedside, he was relieved to know that his workup here is normal. He did request a refill of his inhaler as his prescription is . He states that he has an upcoming appointment with his PCP and will discuss referral to cardiology at that time. Discharge Plan Departure Patient Disposition: Home Clinical Impression: Chest pain Instructions: DI for Atypical Chest Pain Activity Restrictions/Additional Instructions: Your laboratory work, EKG, and chest x-ray were normal today. I do not know the cause of your chest pain but your workup here today is reassuring. I recommend following up with your primary care doctor, and it would probably be of benefit to follow up with the acting manager. A referral has been provided pillow. I refilled your inhaler as well Prescriptions: New albuterol sulfate 90 mcg/actuation HFA aerosol inhaler 1 inh inhalation QID PRN (Reason: shortness of breath or wheezing) Qty: 8.5 0RF No Action lorazepam 1 mg tablet See Rx Instructions .ROUTE .COMPLEX Qty: 30 5RF Rx Instructions: Take 1 tablet by mouth daily as needed for anxiety clobetasol 0.05 % ointment 1 applic TOP DAILY PRN (Reason: rash) Qty: 60 1RF Rx Instructions: apply once daily to affected area until resolved tadalafil 20 mg tablet 20 mg PO DAILY PRN (Reason: sexual activity) Qty: 90 0RF testosterone 20.25 mg/1.25 gram (1.62 %) gel in metered-dose pump 2 pump topical DAILY Qty: 75 5RF Rx Instructions: apply 1 pump amount over max area of ONE upper arm and shoulder propranolol 10 mg tablet See Rx Instructions .ROUTE .COMPLEX Qty: 180 1RF Dose Instruction: TAKE 1 TABLET BY MOUTH TWICE DAILY Rx Instructions: TAKE 1 TABLET BY MOUTH TWICE DAILY dextroamphetamine-amphetamine [Adderall] 5 mg tablet 5 mg PO DAILY PRN (Reason: ADHD) Qty: 90 0RF Referrals: Rafia Baig MD [Physician] - Apolinar Beal DO [Primary Care Provider] - Stand Alone Forms: Patient Portal/API
[2024-05-12] MEDS: ASPIRIN 81 MG CHEW TAB 324 MG PO (13:27)
[2024-05-12 13:48] LABS: Add Manual Diff / Slide Review NO; Basophils Absolute Auto 100 /uL (0-100); Eosinophils Absolute Auto 1000 /uL (0-450); Eosinophils Percent Auto 8.8 % (2-4); Hematocrit 43.4 % (41-53); Hemoglobin 15.1 g/dL (13.5-17.5); Lymphocytes Absolute Auto 3400 /uL (1100-4500); Lymphocytes Percent Auto 29.3 % (25-40); Mean Corpuscular HGB Conc 34.7 % (30-36); Mean Corpuscular Hemoglobin 30.5 PG (26-34); Mean Corpuscular Volume 87.9 fL (80-100); Monocytes Absolute Auto 900 /uL (0-900); Monocytes Percent Auto 7.9 % (3-14); Neutrophils Absolute Auto 6200 /uL (1500-7000); Platelet Count 316 X10^3/uL (150-400); Red Blood Cell Count 4.94 X10^6/uL (4.5-5.9); Red Cell Distribution Width 13.2 % (11.6-14.8); White Blood Cell Count 11.7 X10^3/uL (4.5-11.0)
[2024-05-12 13:56] LABS: INR 1.2 (0.9-1.3); Prothrombin Time 13.5 SECONDS (9.4-12.5)
[2024-05-12 13:59] LABS: PTT Partial Thromboplastin Tim 32 SECONDS (25.1-36.5)
[2024-05-12 14:00] LABS: Alanine Aminotransferase 27 IU/L (<50); Albumin 4.6 g/dL (3.5-5.0); Albumin Globulin Ratio 1.5 (1.0-2.8); Alkaline Phosphatase 55 U/L (38-126); Aspartate Aminotransferase 24 IU/L (17-59); BUN Creatinine Ratio 14.4 (6-22); Bilirubin Total 0.7 mg/dL (0.2-1.3); Blood Urea Nitrogen 16 mg/dL (9-20); Calcium 9.2 mg/dL (8.4-10.2); Carbon Dioxide 29 mmol/L (22-32); Chloride 104 mmol/L (98-107); Creatine Kinase 71 U/L (55-170); Estimated Glomerular Filt Rate > 60 mL/min (>60); Glucose 102 mg/dL (70-100); HEMOLYSIS < 15 (0-50); Lipase 196 U/L (23-300); Potassium 4.1 mmol/L (3.4-5.1); Sodium 140 mmol/L (137-145); Total Protein 7.6 g/dL (6.3-8.2)
[2024-05-12 14:12] LABS: NT-proBNP (BNP-Adult 18+) < 20 pg/mL (<125); Troponin I < 0.012 ng/mL (0.01-0.034)
--- NOTE | 2024-05-12 14:52 | EKG_ITS ---
[address] [address] Test Date: 2024-05-12 Pat Name: Senait Torres Department: Room: Gender: Male Medical Device Engineer: ARNOL : 1975 Requested By: Order Number: [id number] Reading MD: Linden Rousseau Measurements Intervals [place] Rate: 56 P: -11 ME: 156 QRS: 45 QRSD: 94 T: 30 QT: 416 QTc: 401 Interpretive Statements Sinus bradycardia Electronically Signed On 05-12-2024 17:14:58 PDT by Linden Rousseau
[2024-05-12 15:40] LABS: D Dimer 230 ng/ml (<500)
[2024-05-12 16:13] LABS: Troponin I < 0.012 ng/mL (0.01-0.034)
== END 2024-05-12 16:52 | disposition home or self-care (01) ==
PROVIDERS: Emergency Provider Emergency Medicine; PCP Family Medicine
DX: R07.9 Chest pain, unspecified (principal); R06.02 Shortness of breath; R00.1 Bradycardia, unspecified
CPT/HCPCS: 36415; 71045; 80053; 82550; 83690; 83735; 83880; 84484; 85025; 85379; 85610; 85730; 93005; 99284

== ENCOUNTER → 2024-05-25 10:00 | Outpatient (CLI) | payer BC, SELFPAY ==
[2024-05-25 11:29] LABS: Add Manual Diff / Slide Review NO; Basophils Absolute Auto 100 /uL (0-100); Basophils Percent Auto 0.7 % (0-2); Eosinophils Absolute Auto 1000 /uL (0-450); Hematocrit 43.5 % (41-53); Hemoglobin 14.9 g/dL (13.5-17.5); Lymphocytes Absolute Auto 2900 /uL (1100-4500); Lymphocytes Percent Auto 28.3 % (25-40); Mean Corpuscular HGB Conc 34.4 % (30-36); Mean Corpuscular Hemoglobin 30.5 PG (26-34); Mean Corpuscular Volume 88.7 fL (80-100); Monocytes Absolute Auto 700 /uL (0-900); Monocytes Percent Auto 7.2 % (3-14); Neutrophils Absolute Auto 5500 /uL (1500-7000); Neutrophils Percent Auto 53.8 % (50-75); Platelet Count 271 X10^3/uL (150-400); Red Cell Distribution Width 13.2 % (11.6-14.8); White Blood Cell Count 10.2 X10^3/uL (4.5-11.0)
[2024-05-25 11:37] LABS: Alanine Aminotransferase 26 IU/L (<50); Albumin 4.3 g/dL (3.5-5.0); Albumin Globulin Ratio 1.5 (1.0-2.8); Alkaline Phosphatase 52 U/L (38-126); Aspartate Aminotransferase 25 IU/L (17-59); BUN Creatinine Ratio 12.5 (6-22); Bilirubin Total 0.6 mg/dL (0.2-1.3); Blood Urea Nitrogen 13 mg/dL (9-20); Calcium 9.3 mg/dL (8.4-10.2); Carbon Dioxide 31 mmol/L (22-32); Chloride 103 mmol/L (98-107); Cholesterol 165 mg/dL (140-199); Estimated Glomerular Filt Rate > 60 mL/min (>60); Globulin 2.8 g/dL (1.7-4.1); Glucose 119 mg/dL (70-100); HDL Cholesterol 34 mg/dL (40-60); HEMOLYSIS < 15 (0-50); LDL Cholesterol Calculated 107 mg/dL (<100); Potassium 4.5 mmol/L (3.4-5.1); Sodium 140 mmol/L (137-145); Total Protein 7.1 g/dL (6.3-8.2); Triglycerides 120 mg/dL (35-150)
[2024-05-25 12:08] LABS: Prostate Specific Antigen Scrn 3.92 ng/mL (0.1-4.0)
== END ==
PROVIDERS: PCP Family Medicine; Referring Provider Family Medicine; Visit Provider Family Medicine
DX: Z01.89 Encounter for other specified special examinations (principal); Z12.5 Encounter for screening for malignant neoplasm of prostate; R79.89 Other specified abnormal findings of blood chemistry; E78.1 Pure hyperglyceridemia; E78.6 Lipoprotein deficiency; R53.83 Other fatigue; I10 Essential (primary) hypertension
CPT/HCPCS: 36415; 80053; 80061; 80321; 84402; 84403; 85025; G0103

== ENCOUNTER → 2024-11-09 15:12 | Outpatient (CLI) | payer BC, SELFPAY ==
[2024-11-09 16:14] LABS: Influenza A - CEPHEID Flu A NEGATIVE (NEGATIVE); Influenza B - CEPHEID Flu B NEGATIVE (NEGATIVE); Respiratory Syncytial Virus Negative (Negative)
[2024-11-09 16:15] LABS: COVID-19 CEPHEID 4-PLEX PCR Negative (Negative)
== END ==
PROVIDERS: PCP Family Medicine; Visit Provider Physician Assistant Surgical
DX: R05.1 Acute cough (principal)
CPT/HCPCS: 0241U

== ENCOUNTER → 2024-11-09 16:13 | Outpatient (CLI) | payer BC, SELFPAY ==
--- NOTE | 2024-11-09 16:15 | DI.RAD.S_ITS ---
PROCEDURE: XR CHEST 2V INDICATIONS: SOB, cough, wheeze, rhonchi TECHNIQUE: 2 views of the chest were acquired. COMPARISON: [facility], CR, XR CHEST 1V, 05/12/2024, 13:24. FINDINGS: Surgical changes and devices: None. Lungs and pleura: Increased bronchovascular markings in bilateral hilar region are seen with mild bronchial wall thickening. No focal infiltrate. No pleural effusions or pneumothorax. Mediastinum: Mediastinal contours are normal. Heart size is normal. Bones and chest wall: No suspicious bony abnormalities. Soft tissues appear unremarkable. IMPRESSION: Suggestion of reactive airway disease such as bronchitis or viral illness. No definite focal infiltrate. No pleural effusion or pneumothorax. Dictated by: Saúl Du M.D. on 11/09/2024 at 16:30 Approved by: Saúl Du M.D. on 11/09/2024 at 16:31
== END ==
PROVIDERS: PCP Family Medicine; Referring Provider Physician Assistant Surgical; Visit Provider Physician Assistant Surgical
DX: R05.1 Acute cough (principal)
CPT/HCPCS: 0241U; 71046

== ENCOUNTER → 2025-05-23 07:33 | Outpatient (CLI) | payer BC, SELFPAY ==
[2025-05-23 09:15] LABS: Vitamin D 25 Hydroxy (D3) 34.6 ng/mL (30.0-100.0)
[2025-05-23 09:28] LABS: TSH w/ Reflex to FT4 1.45 uIU/mL (0.47-4.68)
== END ==
PROVIDERS: PCP Family Medicine; Referring Provider Family Medicine; Visit Provider Family Medicine
DX: E78.1 Pure hyperglyceridemia (principal); R79.89 Other specified abnormal findings of blood chemistry; R53.83 Other fatigue; R73.01 Impaired fasting glucose; Z02.89 Encounter for other administrative examinations; Z12.5 Encounter for screening for malignant neoplasm of prostate; I10 Essential (primary) hypertension
CPT/HCPCS: 82306; 84402; 84403; 84443; G0103

== ENCOUNTER → 2025-05-30 08:34 | Outpatient (CLI) | payer BC, SELFPAY ==
[2025-05-30 09:20] LABS: Add Manual Diff / Slide Review NO; Hematocrit 45.2 % (41-53); Hemoglobin 15.9 g/dL (13.5-17.5); Lymphocytes Absolute Auto 2300 /uL (1100-4500); Mean Corpuscular HGB Conc 35.1 % (30-36); Mean Corpuscular Hemoglobin 31.4 PG (26-34); Mean Corpuscular Volume 89.5 fL (80-100); Platelet Count 247 X10^3/uL (150-400)
[2025-05-30 10:04] LABS: Alanine Aminotransferase 24 IU/L (<50); Albumin 4.3 g/dL (3.5-5.0); Albumin Globulin Ratio 1.6 (1.0-2.8); Alkaline Phosphatase 51 U/L (38-126); Blood Urea Nitrogen 13 mg/dL (9-20); Calcium 9.4 mg/dL (8.4-10.2); Carbon Dioxide 29 mmol/L (22-32); Chloride 102 mmol/L (98-107); Cholesterol 147 mg/dL (140-199); Estimated Glomerular Filt Rate > 60 mL/min (>60); Globulin 2.7 g/dL (1.7-4.1); Glucose 127 mg/dL (70-99); HDL Cholesterol 31 mg/dL (40-60); HEMOLYSIS < 15 (0-50); Potassium 4.2 mmol/L (3.4-5.1); Sodium 138 mmol/L (137-145); Total Protein 7.0 g/dL (6.3-8.2); Triglycerides 125 mg/dL (35-150)
[2025-05-30 15:13] LABS: Hemoglobin A1C% w Est Avg Glu 5.7 % (4.0-6.0)
== END ==
PROVIDERS: PCP Family Medicine; Referring Provider Family Medicine; Visit Provider Family Medicine
DX: Z02.89 Encounter for other administrative examinations (principal); E78.1 Pure hyperglyceridemia; R79.89 Other specified abnormal findings of blood chemistry; R53.83 Other fatigue; I10 Essential (primary) hypertension; R73.01 Impaired fasting glucose; E78.6 Lipoprotein deficiency
CPT/HCPCS: 36415; 80053; 80061; 83036; 85025